=== PATIENT | female | born 1985 | race Caucasian/White ===

== ENCOUNTER 2018-05-30 20:44 | Emergency (ER) | payer OTHER, SELFPAY ==
--- NOTE | 2018-05-30 20:49 | ED_ITS ---
HPI - Extremity Injury (Upper) <CRISTI Vivas - Last Filed: 05/30/18 22:21> General Chief Complaint: Extremity Injury, Upper Stated Complaint: Dropped something on wrist Time Seen by Provider: 05/30/18 20:49 Source: patient Mode of arrival: ambulatory Limitations: no limitations History of Present Illness HPI narrative: 33-year-old healthy female here for complaint of pain into the left forearm area after she dropped a heavy object onto it earlier this evening. She denies it hitting any other area of her body. She reports increased pain with movement of the left wrist. She denies any other concerns or complaints. She had has some redness and swelling to the left forearm. She states she has full function of her left hand. MD complaint: injury to: left and arm Related Data Allergies Allergy/AdvReac Type Severity Reaction Status Date / Time From [facility] Allergy Unknown HIVES/ITCHI Uncoded 02/11/18 13:11 NG/REDNESS Review of Systems <CRISTI Vivas - Last Filed: 05/30/18 22:21> Constitutional Denies chills, Denies fever(s), Denies lethargy and Denies weakness Eyes Denies change in vision, Denies eye discharge, Denies irritation and Denies loss of vision ENT Ears, Nose, Mouth, and Throat: Denies change in voice, Denies neck pain and Denies sore throat Cardiovascular Denies chest pain, Denies irregular heart rhythm, Denies lightheadedness, Denies palpitations, Denies dyspnea, Denies dyspnea on exertion and Denies orthopnea Respiratory Denies cough, Denies dyspnea, Denies dyspnea on exertion and Denies wheezing Gastrointestinal Gastrointestinal: Denies abdominal pain, Denies change in bowel habits, Denies diarrhea, Denies nausea and Denies vomiting Genitourinary Denies hematuria, Denies flank pain, Denies urinary incontinence and Denies urinary urgency Musculoskeletal Denies neck pain Comments: Pain and swelling to distal left forearm Integumentary/Breasts Denies pruritus, Denies erythema, Denies rash and Denies wounds Neurologic Denies confusion, Denies loss of vision and Denies weakness Psychiatric Denies anxiety, Denies confusion, Denies depression, Denies homicidal ideation and Denies suicidal ideation Endocrine Denies palpitations Hematologic/Lymphatic Denies easy bruising Allergic/Immunologic Denies wheezing Exam <CRISTI Vivas - Last Filed: 05/30/18 22:21> Initial Vital Signs Initial Vital Signs: Vital Signs Temperature 98.2 F 05/30/18 20:55 Pulse Rate 78 05/30/18 20:55 Respiratory Rate 16 05/30/18 20:55 Blood Pressure 124/77 H 05/30/18 20:55 Pulse Oximetry 99 05/30/18 20:55 Const General: cooperative and well developed Nutritional Appearance: well nourished Orientation: alert, awake, oriented x3 and not confused HENNJ Mouth: oral mucosae normal and moist mucous membranes Eyes Conjunctivae: conjunctivae normal Sclera: sclerae normal Pupils: PERRL EOM: EOM intact bilaterally Resp Effort & Inspection: normal respiratory effort, able to speak in complete sentences, no respiratory distress and no use of accessory muscles Auscultation: clear to auscultation bilaterally, no rales, no rhonchi and no wheezes Cardio Rate: regular rate Rhythm: regular rhythm Heart Sounds: no click, no gallops, no murmurs and no rubs Pulses: normal peripheral pulses Skin General: no rashes or lesions noted, No jaundice and No petechiae Neuro General: alert, oriented x3, gait normal and no focal motor deficits Speech: speech normal Extrem Other: Slight swelling to the distal left forearm ulnar aspect. No deformities. No ecchymosis. Distal sensation is intact. Distal range of motion is intact. Distal pulses are intact <Zenia Coh DO - Last Filed: 05/31/18 00:26> Initial Vital Signs Initial Vital Signs: Vital Signs Temperature 98.2 F 05/30/18 20:55 Pulse Rate 78 05/30/18 20:55 Respiratory Rate 16 05/30/18 20:55 Blood Pressure 124/77 H 05/30/18 20:55 Pulse Oximetry 99 05/30/18 20:55 Course <CRISTI Vivas - Last Filed: 05/30/18 22:21> Orders Ordered: ED Orders 05/30/18 20:59 XR forearm LT 2V Stat Discontinued Medications Ibuprofen (Advil) 400 mg PO NOW ONE Stop: 05/30/18 21:01 Last Admin: 05/30/18 21:14 Dose: 400 mg Vital Signs - 8 hr 05/30/18 20:55 05/30/18 22:23 Temperature 98.2 F 97.0 F L Pulse Rate 78 75 Respiratory Rate 16 18 Blood Pressure 124/77 H Blood Pressure [Left Arm] 102/62 Pulse Oximetry 99 100 <Zenia Cho DO - Last Filed: 05/31/18 00:26> Orders Ordered: ED Orders 05/30/18 20:59 XR forearm LT 2V Stat Discontinued Medications Ibuprofen (Advil) 400 mg PO NOW ONE Stop: 05/30/18 21:01 Last Admin: 05/30/18 21:14 Dose: 400 mg Vital Signs - 8 hr 05/30/18 20:55 05/30/18 22:23 Temperature 98.2 F 97.0 F L Pulse Rate 78 75 Respiratory Rate 16 18 Blood Pressure 124/77 H Blood Pressure [Left Arm] 102/62 Pulse Oximetry 99 100 MDM - Extremity Injury (Upper) <CRISTI Vivas - Last Filed: 05/30/18 22:21> Imaging Data Left forearm: Radiologist's impression: Patient: Brandy Higgins MR#: [id number] : 1985 Acct:[id number] Age/Sex: 33 / F Date of Service: 05/30/18 Loc: ED Accession Number: [id number] Procedure: XR forearm LT 2V Ordering Provider: Josue Mckeon PROCEDURE: XR FOREARM RT 2V INDICATIONS: Dropped a heavy object to left wrist/forearm TECHNIQUE: 2 views of the forearm were acquired. COMPARISON: None. FINDINGS: Bones: No fractures or dislocations. No suspicious bony lesions. Soft tissues: No suspicious soft tissue calcifications or masses. IMPRESSION: No acute radiographic findings. If pain persists, repeat study in 5 -7 days is recommended to exclude occult fracture. Dictated by: Regine Tovar M.D. on 05/30/2018 at 22:02 Approved by: Regnie Tovar M.D. on 05/30/2018 at 22:03 [facility] Narrative Medical decision making narrative: X-ray of the left forearm was obtained was negative for any acute fractures. Signs and symptoms presents as contusion to the area. [id number] Tylenol and/or Motrin as needed for discomfort. Ice to area to help with swelling. Elevation also help with swelling. Follow up with primary care provider this week for re-evaluation. If still painful to area after 7 days repeat films to rule out occult fracture. Return emergency room for any worsening symptoms. Discharge Plan Departure Patient Disposition: Home, Self-Care Clinical Impression: Contusion of forearm, left Discharge Date/Time: 05/30/18 22:31 Interventions: ED Discharge Assessment Last Done: 05/30/18 22:31 Instructions: DI for Contusion Activity Restrictions/Additional Instructions: X-ray of the left forearm was obtained was negative for any acute fractures. Signs and symptoms presents as contusion to the area. [id number] Tylenol and/or Motrin as needed for discomfort. Ice to area to help with swelling. Elevation also help with swelling. Follow up with primary care provider this week for re-evaluation. If still painful to area after 7 days repeat films to rule out occult fracture. Return emergency room for any worsening symptoms. Referrals: Adeel Collazo MD [Primary Care Provider] - <Zenia Cho DO - Last Filed: 05/31/18 00:26> Cosign ED Attending Dusty[employer] Attestation: I was immediately available in the department for consultation. Documentation has been reviewed. I agree with assessment and plan.
[2018-05-30 20:55] VITALS: BP 124/77; PULSE 78; RESP 16; TEMP 36.8; O2SAT 99; BMI 25.8
--- NOTE | 2018-05-30 20:59 | DI.RAD.S_ITS ---
PROCEDURE: XR FOREARM RT 2V INDICATIONS: Dropped a heavy object to left wrist/forearm TECHNIQUE: 2 views of the forearm were acquired. COMPARISON: None. FINDINGS: Bones: No fractures or dislocations. No suspicious bony lesions. Soft tissues: No suspicious soft tissue calcifications or masses. IMPRESSION: No acute radiographic findings. If pain persists, repeat study in 5-7 days is recommended to exclude occult fracture. Dictated by: Regnie Tovar M.D. on 05/30/2018 at 22:02 Approved by: Regine Tovar M.D. on 05/30/2018 at 22:03
[2018-05-30] MEDS: IBUPROFEN 400 MG TABLET PO (21:14)
[2018-05-30 22:23] VITALS: BP 102/62; PULSE 75; RESP 18; TEMP 36.1; O2SAT 100
== END 2018-05-30 22:31 | disposition home or self-care (01) ==
PROVIDERS: Emergency Provider Nurse Practitioner Family; Family Provider Family Medicine; PCP Family Medicine
DX: S50.12XA Contusion of left forearm, initial encounter (principal); W23.0XXA Caught, crushed, jammed, or pinched between moving objects, initial encounter
CPT/HCPCS: 73090; 99282; 99283

== ENCOUNTER → 2020-04-03 14:51 | Outpatient (CLI) | payer OTHER, SELFPAY ==
--- NOTE | 2020-04-03 | DI.RAD.S_ITS ---
PROCEDURE: XR KNEE RT 3V INDICATIONS: Right knee pain TECHNIQUE: 3 views of the knee were acquired. COMPARISON: None. FINDINGS: Bones: No fractures or dislocations. No suspicious bony lesions. Soft tissues: No joint effusion. No suspicious soft tissue calcifications. IMPRESSION: No trauma found, source of right knee pain is not identified. Dictated by: Kwadwo Jeff M.D. on 04/03/2020 at 15:39 Approved by: Kwadwo Jeff M.D. on 04/03/2020 at 15:40
== END ==
PROVIDERS: Family Provider Family Medicine; PCP Family Medicine; Referring Provider Family Medicine; Visit Provider Family Medicine
DX: M25.561 Pain in right knee (principal)
CPT/HCPCS: 73562

== ENCOUNTER → 2020-05-01 12:44 | Outpatient (CLI) | payer OTHER, SELFPAY ==
--- NOTE | 2020-05-01 | DI.US.S_ITS ---
PROCEDURE: US PERIPH VENOUS LOW EXTREM RT INDICATIONS: PAIN IN RIGHT THIGH TECHNIQUE: Real-time imaging, as well as color and pulse Doppler interrogation, were performed of the lower extremity deep veins from the inguinal ligament to the popliteal fossa. COMPARISON: None. FINDINGS: The common femoral, femoral and popliteal veins are normally compressible, and free of intraluminal thrombus. Color and pulse Doppler demonstrate normal phasic intraluminal flow. There is normal augmentation response to distal compression maneuver. IMPRESSION: No deep venous thrombosis identified within the right lower extremity. Dictated by: Jonathan Baez Angelica Interpreted: Maria Isabel Pate MD on 05/01/2020 at 13:31 Approved by: Maria Isabel Pate M.D. on 05/01/2020 at 17:44
== END ==
PROVIDERS: Family Provider Family Medicine; PCP Family Medicine; Referring Provider Family Medicine; Visit Provider Family Medicine
DX: M79.651 Pain in right thigh (principal)
CPT/HCPCS: 93971

== ENCOUNTER → 2020-10-19 11:12 | Outpatient (CLI) | payer OTHER, MEDICAID, SELFPAY ==
--- NOTE | 2020-10-19 | DI.US.S_ITS ---
PROCEDURE: US PELVIC COMPLETE INDICATIONS: PELVIC AND PERINEAL PAIN TECHNIQUE: Real-time scanning was performed of the pelvic organs, with image documentation. Additional endovaginal scanning was necessary due to incomplete visualization of the adnexal and endometrial structures by transabdominal scanning. COMPARISON: None. FINDINGS: Transabdominal scanning: Limited scanning through the kidneys shows no hydronephrosis. No pathologic free abdominal or pelvic fluid. Endovaginal scanning: Uterus: Uterus is mildly enlarged measuring 10.1 x 4.2 x 4.8 cm. The endometrium measures 11 0.0 mm in combined thickness. There is an IUD in the lower uterine segment/cervix, which appears penetrated anterior into the myometrium. A small amount of fluid is present within the endometrial cavity. Ovaries: Right ovary measures 2.8 x 1.8 x 2.6 cm. Left ovary measures 3.8 x 2.5 x 3.3 cm. There is a complex cyst in the left ovary measuring 2.0 x 1.5 x 2.1 cm. IMPRESSION: 1. Mild enlargement of uterus. There is an IUD in the lower uterine segment/cervix, which appears penetrated anteriorly into the myometrium. A small amount of fluid is present within the endometrial cavity. 2. A 2.0 x 1.5 x 2.1 cm complex cyst in the left ovary. 3. Normal right ovary. Dictated by: Melissa You M.D. on 10/19/2020 at 14:52 Approved by: Melissa You M.D. on 10/19/2020 at 14:57
== END ==
PROVIDERS: Family Provider Family Medicine; PCP Family Medicine; Referring Provider Internal Medicine; Visit Provider Internal Medicine
DX: R10.2 Pelvic and perineal pain (principal); N85.2 Hypertrophy of uterus; N83.292 Other ovarian cyst, left side; Z97.5 Presence of (intrauterine) contraceptive device
CPT/HCPCS: 76830; 76856

== ENCOUNTER → 2021-01-11 10:40 | Outpatient (CLI) | payer OTHER, MEDICAID, SELFPAY ==
--- NOTE | 2021-01-11 10:43 | DI.US.S_ITS ---
PROCEDURE: US PELVIC COMPLETE INDICATIONS: LEFT OVARIAN CYST FOLLOW UP TECHNIQUE: Real-time scanning was performed of the pelvic organs, with image documentation. Additional endovaginal scanning was necessary due to incomplete visualization of the adnexal and endometrial structures by transabdominal scanning. COMPARISON: [facility], US, US PELVIC COMPLETE, 10/19/2020, 11:27. FINDINGS: Uterus: Uterus is normal in size at 9.2 x 5.2 x 4.6 cm. The endometrium measures 13.7 mm in combined thickness. Ovaries: Right ovary measures 5.8 x 2.2 x 1.8 cm and the left 5.0 x 2.9 x 2.2 cm. Interval increase in size of thick wall, complex cyst involving the left ovary now measuring 3.2 x 2.2 x 2.2 cm. Other: No pathologic free abdominal or pelvic fluid. IMPRESSION: Increase in size of presumed hemorrhagic left ovarian cyst measuring up to 3.2 cm. Endometrioma would also be included in the differential. Short-term follow-up pelvic ultrasound in 6-12 weeks is recommended. Dictated by: Jonathan DIAZ Interpreted: Maria Isabel Pate MD on 01/11/2021 at 16:27 Approved by: Maria Isabel Pate M.D. on 01/11/2021 at 17:30
== END ==
PROVIDERS: Family Provider Family Medicine; PCP Family Medicine; Referring Provider Internal Medicine; Visit Provider Internal Medicine
DX: N83.292 Other ovarian cyst, left side (principal)
CPT/HCPCS: 76830; 76856

== ENCOUNTER → 2021-01-23 17:30 | Outpatient (CLI) | payer OTHER, MEDICAID, SELFPAY ==
[2021-01-23 18:32] LABS: Cancer Antigen 125 27.7 U/mL (0-35)
[2021-01-25 12:11] LABS: Human Epididymis Prot 4 34.4 pmol/L (0.0-61.2)
== END ==
PROVIDERS: Family Provider Family Medicine; PCP Family Medicine; Referring Provider Obstetrics & Gynecology; Visit Provider Obstetrics & Gynecology
DX: N83.292 Other ovarian cyst, left side (principal); R19.09 Other intra-abdominal and pelvic swelling, mass and lump
CPT/HCPCS: 36415; 86304; 86305

== ENCOUNTER → 2021-02-22 08:12 | Outpatient (CLI) | payer OTHER, MEDICAID, SELFPAY ==
--- NOTE | 2021-02-22 08:14 | DI.US.S_ITS ---
PROCEDURE: US PELVIC COMPLETE INDICATIONS: FOLLOW-UP LEFT OVARIAN CYST TECHNIQUE: Real-time scanning was performed of the pelvic organs, with image documentation. Additional endovaginal scanning was necessary due to incomplete visualization of the adnexal and endometrial structures by transabdominal scanning. COMPARISON: [facility], , US PELVIC COMPLETE, 10/19/2020, 11:27. [facility], , US PELVIC COMPLETE, 01/11/2021, 11:07. FINDINGS: Uterus: Uterus is normal in size at 9.6 x 4.7 x 6.3 cm. The endometrium measures 6 mm in combined thickness. Note is made of fluid along the endometrial canal. Incidental note is made of nabothian cysts. Ovaries: The right ovary measures 2.9 x 2.1 x 2.6 cm and demonstrates a simple cyst that measures up to 2 cm. The left ovary measures 2.2 x 1.8 x 2.4 cm and demonstrates cystic follicles that measure up to 1.1 cm. The previously seen complex left ovarian cyst has resolved.. The ovaries have a normal sonographic appearance. No adnexal masses are seen. Other: No pathologic free abdominal or pelvic fluid. IMPRESSION: Resolution of the previously seen complex left ovarian cyst. Dictated by: Tony Arnold M.D. on 02/22/2021 at 9:01 Approved by: Tony Arnold M.D. on 02/22/2021 at 9:03
== END ==
PROVIDERS: Family Provider Family Medicine; PCP Family Medicine; Referring Provider Family Medicine; Visit Provider Family Medicine
DX: N83.292 Other ovarian cyst, left side (principal); N83.291 Other ovarian cyst, right side
CPT/HCPCS: 76830; 76856

== ENCOUNTER → 2022-07-22 15:19 | Outpatient (CLI) | payer OTHER, SELFPAY ==
--- NOTE | 2022-07-22 | DI.RAD.S_ITS ---
PROCEDURE: XR FOOT RT MIN 3V INDICATIONS: right foot pain TECHNIQUE: 3 views of the foot were acquired. COMPARISON: None. FINDINGS: Bones: No fractures or dislocations. No suspicious bony lesions. Soft tissues: No tibiotalar joint effusion. Achilles tendon appears normal. IMPRESSION: No definite radiographic abnormality. If pain persists with conservative management, consider cross sectional imaging such as CT or MRI for further assessment. Dictated by: Jonathan Baez [facility] Interpreted: Maria Isabel Pate MD on 07/22/2022 at 15:49 Transcribed by: KANDACE on 07/22/2022 at 15:50 Approved by: Maria Isabel Pate M.D. on 07/22/2022 at 16:52
== END ==
PROVIDERS: Family Provider Family Medicine; PCP Family Medicine; Referring Provider Family Medicine; Visit Provider Family Medicine
DX: M79.671 Pain in right foot (principal)
CPT/HCPCS: 73630

== ENCOUNTER → 2022-09-06 16:14 | Outpatient (CLI) | payer OTHER, MEDICAID, SELFPAY ==
--- NOTE | 2022-09-06 16:16 | DI.RAD.S_ITS ---
PROCEDURE: XR HAND RT MIN 3V INDICATIONS: Right hand injury -right middle finger MCP joint injury TECHNIQUE: 3 views of the hand(s) acquired. COMPARISON: None. FINDINGS: Bones: No fractures or dislocations. Carpal bones are normally aligned. No suspicious bony lesions. Soft tissues: No suspicious soft tissue calcifications. IMPRESSION: No trauma found. Dictated by: Kwadwo Jeff M.D. on 09/06/2022 at 16:32 Approved by: Kwadwo Jeff M.D. on 09/06/2022 at 16:32
== END ==
PROVIDERS: Family Provider Family Medicine; PCP Family Medicine; Referring Provider Registered Nurse; Visit Provider Registered Nurse
DX: S69.91XA Unspecified injury of right wrist, hand and finger(s), initial encounter (principal); X58.XXXA Exposure to other specified factors, initial encounter
CPT/HCPCS: 73130

== ENCOUNTER → 2024-12-23 14:29 | Outpatient (CLI) | payer OTHER, SELFPAY ==
--- NOTE | 2024-12-23 14:32 | DI.MG.S_ITS ---
BILATERAL DIGITAL SCREENING MAMMOGRAM 3D/2D WITH CAD: 12/23/2024 CLINICAL: Routine screening. Baseline exam. No prior exams were available for comparison. There are scattered areas of fibroglandular density (category b / 25%-50% glandular tissue). Current study was also evaluated with a Computer Aided Detection (CAD) system. No significant masses, calcifications, or other findings are seen in either breast. IMPRESSION: NEGATIVE There is no mammographic evidence of malignancy. A 1 year screening mammogram is recommended. Based on the Tyrer Cuzick model (a risk assessment model) the patient's lifetime risk is 5.7% and her 10 year risk is 0.7%. According to the ACR, ACS, and NCCN guidelines, an annual breast MRI exam along with mammogram is recommended if the patient's lifetime risk is 20% or greater. This exam was interpreted at Station ID: [id number]. NOTE: For mammograms, a report in lay terms will be sent to the patient. Approximately 15% of breast malignancies will not be visualized mammographically. In the management of a palpable breast mass, a negative mammogram must not discourage biopsy of a clinically suspicious lesion. Electronically Signed By: Charu velasco/joanna:12/23/2024 17:53:40 letter sent: Normal Exam ACR BI-RADS Category 1: Negative
== END ==
PROVIDERS: Family Provider Family Medicine; PCP Family Medicine; Referring Provider Registered Nurse Emergency; Visit Provider Registered Nurse Emergency
DX: Z12.31 Encounter for screening mammogram for malignant neoplasm of breast (principal)
CPT/HCPCS: 77063; 77067